=== PATIENT | male | born 1995 | race Two or more races ===

== ENCOUNTER 2021-10-26 02:09 | Emergency (ER) | payer OTHER ==
[~2021-10-26] VITALS: Ht 177.8 cm; Wt 65.9 kg
[2021-10-26 02:12] VITALS: BP 134/82
== END 2021-10-26 04:40 | disposition home or self-care (01) ==
LOC: EMS 02:16
DX: F41.9 Anxiety disorder, unspecified (principal); F32.9 Major depressive disorder, single episode, unspecified
CPT/HCPCS: 99281; Z7502